=== PATIENT | female | born 1980 | race Two or more races ===

== ENCOUNTER 2016-09-26 13:20 | Emergency (ER) | payer OTHER | END 2016-09-26 16:04 | disposition home or self-care (01) | LOC: CED 13:20 → CFTX 13:20 | DX: L02.414 Cutaneous abscess of left upper limb (principal); L03.211 Cellulitis of face; F17.210 Nicotine dependence, cigarettes, uncomplicated | CPT/HCPCS: 10060; 82947; 99283 ==

== ENCOUNTER 2016-09-28 10:43 | Emergency (ER) | payer OTHER | END 2016-09-28 11:46 | disposition home or self-care (01) | LOC: CFTX 10:43 → CED 10:43 → CFTX 11:45 | DX: Z48.00 Encounter for change or removal of nonsurgical wound dressing (principal); F17.210 Nicotine dependence, cigarettes, uncomplicated | CPT/HCPCS: 99282 ==

== ENCOUNTER 2016-10-01 18:11 | Emergency (ER) | payer OTHER | END 2016-10-01 21:05 | disposition home or self-care (01) | LOC: CFTX 18:11 → CED 18:11 → CFTX 21:00 | DX: Z48.00 Encounter for change or removal of nonsurgical wound dressing (principal) | CPT/HCPCS: 99282 ==

== ENCOUNTER 2016-10-05 18:41 | Emergency (ER) | payer OTHER | END 2016-10-05 20:16 | disposition home or self-care (01) | LOC: CFTX 18:41 → CED 18:41 → CFTX 19:29 | DX: L02.414 Cutaneous abscess of left upper limb (principal); F17.210 Nicotine dependence, cigarettes, uncomplicated | CPT/HCPCS: 99282 ==